=== PATIENT | male | born 1985 | race Caucasian/White ===

== ENCOUNTER 2016-09-04 19:43 | Emergency (ER) | payer MEDICARE, MEDICAID ==
[~2016-09-04] VITALS: Ht 188 cm; Wt 140.4 kg
[2016-09-04 19:51] VITALS: BP 120/83; PULSE 80; RESP 16; O2SAT 97
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
--- NOTE | 2016-09-04 21:21 | DRSVH ---
PROCEDURE: CT BRAIN WITHOUT CONTRAST ([id number]) INDICATIONS: trauma TECHNIQUE: Noncontrast 4.5 mm thick angled axial sections acquired from the foramen magnum to the vertex, with c oronal reformats. COMPARISON: None. FINDINGS: Image quality: Excellent. CSF spaces: Basal cisterns are patent. No extra-axial fluid collections. Ventricles are normal in size and shape. Brain: No midline shift. No intracranial masses or hemorrhage. Celis-white matter interface is norm al. Skull and face: Calvarium and visualized facial bones are intact, without suspicious lesions. Sinuses: Visualized sinuses and mastoids are clear. IMPRESSION: Negative head CT. Dictated by: Eric Michael M.D. on 09/04/2016 at 21:10 Approved by: Eric Michael M.D. on 09/04/2016 at 21:14
--- NOTE | 2016-09-04 21:24 | DRSVH ---
PROCEDURE: CT CERVICAL SPINE WITHOUT CONTRAST ([id number]) INDICATIONS: trauma TECHNIQUE: Noncontrast 3 mm thick sections acquired from the skull base to the T4 level. Sagittal and coronal r eformats were then constructed. For radiation dose reduction, the following was used: automated exp osure control, adjustment of mA and/or kV according to patient size. COMPARISON: None. FINDINGS: Image quality: Excellent. Bones: Loss of the normal cervical lordosis likely due to patient positioning or muscular spasm. Othe rwise normal cervical vertebral body alignment. Motion and artifact related to the patient's body hab itus degrades evaluation of the inferior cervical spine. There are no acute fractures or dislocations . No significant degenerative change. Incidentally visualized paraspinal soft tissues are within norm al limits.. Soft tissues: Prevertebral soft tissues are normal in thickness. No paravertebral hematomas. No ap ical pneumothoraces. IMPRESSION: Loss of the normal cervical lordosis is likely positional. No CT evidence of acute cervical spine pat hology. Please note, evaluation of the inferior cervical spine is degraded by motion and patient body habitus artifact. Dictated by: Eric Michael M.D. on 09/04/2016 at 21:14 Approved by: Eric Michael M.D. on 09/04/2016 at 21:17
--- NOTE | 2016-09-04 21:27 | DRSVH ---
PROCEDURE: CT FACE WITHOUT CONTRAST ([id number]) INDICATIONS: trauma TECHNIQUE: Noncontrast 1.5 mm thick axial images acquired from the mandible through the frontal sinuses, with co lou and sagittal reformatting. For radiation dose reduction, the following was used: automated ex posure control. COMPARISON: None. FINDINGS: Image quality: Excellent. Bones and teeth: Orbital colbert are intact. Sinus colbert show no fracture or deformity. Nasal bones and septum are intact. Visualized portions of the mandible demonstrate no fractures or subluxation. Age-indeterminate fracture or less likely congenital deformity of the right zygomatic arch (se 7 im 7 4). Left zygomatic arch is normal. Pterygoid plates are intact. Visualized portions of the skull ba se and auditory canals are intact. Sinuses: Paranasal sinuses are aerated, without fluid levels, mucosal thickening, or mucoceles. Mas toid air cells are aerated. Soft tissues: Right facial edema/contusion. No enlarged lymph nodes. No soft tissue lacerations or debris. Vascular: Visualized vascular structures appear normal in the absence of contrast. Bony vascular fo ramina and canals are intact. IMPRESSION: Right facial soft tissue swelling/edema with age indeterminate nondisplaced right zygomat ic arch fracture. Otherwise normal CT of the face. Dictated by: Eric Michael M.D. on 09/04/2016 at 21:17 Approved by: Eric Michael M.D. on 09/04/2016 at 21:20
[2016-09-04 21:52] VITALS: BP 122/80; PULSE 82; RESP 16; O2SAT 98
== END 2016-09-04 21:53 | disposition home or self-care (01) ==
LOC: SED 19:43
DX: S00.83XA Contusion of other part of head, initial encounter (principal); S80.811A Abrasion, right lower leg, initial encounter; W01.10XA Fall on same level from slipping, tripping and stumbling with subsequent striking against unspecified object, initial encounter; Y93.89 Activity, other specified; Y92.009 Unspecified place in unspecified non-institutional (private) residence as the place of occurrence of the external cause; Y99.8 Other external cause status; F84.0 Autistic disorder; Z88.5 Allergy status to narcotic agent

== ENCOUNTER 2016-10-06 17:20 | Emergency (ER) | payer MEDICARE, MEDICAID ==
[~2016-10-06] VITALS: Ht 188 cm; Wt 140.9 kg
[2016-10-06 17:28] VITALS: BP 136/99; PULSE 105; RESP 24; O2SAT 95
--- NOTE | 2016-10-06 18:28 | ED.REPORT ---
HPI-Abd Pain M Under 40 Date of Service Oct 06, 2016 ED Provider: Sai Guardado MD A 31 year old nonverbal autistic male with a history of PICA presents to the ED with visible signs of abdominal pain that began a few days ago. Caregiver reports that the patient has not had a BM in 4 days. She also reports diaphoresis, shaking chills, decreased appetite, decreased urine output and discomfort during gait. He was given prune juice this morning to stimulate a BM with no success. The patient has been reportedly "doubling over" in pain for the past few days. Nursing Notes Stated Complaint: SHOWING SIGNS OF PAIN Chief Complaint: Male Abdominal Pain Nursing Notes Reviewed: Yes Allergies: Coded Allergies: haloperidol (Verified Allergy, Unknown, 09/04/16) General Time Seen by MD: 18:25 Chief Complaint Abdominal pain Hx Obtained From: Farm Contractor Buyer Arrived By: Walk-in Sudden in Onset?: No Symptom Duration: Since onset Progression since Onset: Unchanged Location: : Diffuse Quality: Painful Radiation: : Does not radiate Severity: Current: Moderate Severity: Maximum: Moderate Associated with: Reports: Chills, Constipation, Denies: Fever Pertinent Negative: Pt denies other symptoms Recent Healthcare: No recent doctor visit, No recent hospitalization Past Medical History Past Medical History Autism Nonverbal PICA Past Surgical History None reported. Family History Noncontributory Smoking History Never Smoker Social History Other Social History: Good social support, Local resident Ambulatory Status Independent Review of Systems Unable to Obtain ROS Mental status (Pt is nonverbal ) Physical Exam Initial Vital Signs Vital Signs (First) Date Time Temp Pulse Resp B/P Pulse Ox O2 Delivery O2 Flow Rate FiO2 10/06/16 17:28 36.3 105 24 136/99 95 Room Air Initial VS: Reviewed Head / Eyes: Atraumatic, Normocephalic, PERRL Neck: Supple, Non-tender, Full range of motion Extremities: Vascular intact, Neuro intact, No swelling, No tenderness Skin: Warm, Dry, No cyanosis General/Constitutional: Awake, Alert, No acute distress, Well appearing, Well developed Respiratory / Chest: Atraumatic, Breath sounds NL, Breath sounds = bilat, No respiratory distress RESPIRATORY: Tachypneic with respiratory rate 23 Cardiovascular: Regular rhythm, Heart sounds NL Heart Rate / Rhythm: Positive: Tachycardia (100) Abdomen: Atraumatic, Soft, Non-tender Bowel Sounds / Distention: Positive: Bowel sounds hyperactive Back: Atraumatic Abnormal Mood/Affect: Positive: Flat affect PSYCH: Non-verbal Interpretation & Diagnostics Lab Results Interpretation Result Diagram: 10/06/16190810/06/16 190 Test 10/06/16 18:38 10/06/16 19:09 White Blood Count 7.7th/mm3 (3.8-10.1) Red Blood Count 5.21mil/mm3 (4.40-5.80) Hemoglobin 15.4g/dL (13.8-17.2) Hematocrit 43.4% (41.0-50.0) Mean Corpuscular Volume 83.3fL (81-100) Mean Corpuscular Hemoglobin 29.6pg (27.0-35.0) Mean Corpuscular Hemoglobin Concent 35.5% (32.0-37.0) Red Cell Distribution Width 13.8% (12.3-15.4) Platelet Count 140bil/L (150-400) Neutrophils (%) (Auto) 70.3% (40-74) Lymphocytes (%) (Auto) 19.1% (14-46) Monocytes (%) (Auto) 9.6% (4-12) Eosinophils (%) (Auto) 0.8% (0-5) Basophils (%) (Auto) 0.1% (0-3) Sodium Level 140mEq/L (134-144) Potassium Level 4.2mEq/L (3.5-5.2) Chloride Level 103mEq/L (97-108) Carbon Dioxide Level 22mmol/L (18-29) Blood Urea Nitrogen 10mg/dL (6-20) Creatinine 0.76mg/dL (0.76-1.27) Estimat Glomerular Filtration Rate 127mL/min (>59) Glucose Level 102mg/dL (60-99) Calcium Level 9.4mg/dL (8.5-10.1) Total Bilirubin 0.4mg/dL (0.0-1.2) Aspartate Amino Transf (AST/SGOT) 27U/L (0-50) Alanine Aminotransferase (ALT/SGPT) 58U/L (0-44) Alkaline Phosphatase 72U/L (25-150) Total Protein 7.1g/dL (6.4-8.4) Albumin 4.5g/dL (3.4-5.0) Re-Eval/Medical Decision Re-Evaluation/Progress : Time of Eval: 20:42 Patient Status: Condition improved Re-Evaluation/Progress Note: Pt is informed of his results and the plan to discharge with follow up. All of the family's questions are addressed. She understands and agrees with the plan. Counseled Regarding: Diagnosis, Lab results, Need for follow-up, When/why to return to ED Patient Discharge & Departure Primary Impression: Constipation Constipation type: unspecified constipation type Qualified Code: K59.00 - Constipation, unspecified Disposition: Home Discharge Condition All VS Reviewed: Yes Condition: Improved Patient Instructions: Constipation (ED) Additional Instructions: Thank you for trusting us with Ashish's care this evening. His emergency department evaluation is reassuring that there is no dangerous cause for concern at this time and his abdominal pain is likely due to constipation. I recommend that you schedule a follow-up appointment with his primary care physician the next 1-2 days for a recheck. Please take magnesium citrate tonight as directed. If the magnesium citrate is ineffective, prescriptionTheseCPAP for Suprep tomorrow. Please return to the emergency department for any new or worsening conditions including any worsening abdominal pain, high fevers, chills, nausea or uncontrollable vomiting. Referrals: Francia Luis (PCP) Pepe[place] Attestation Portions of this note were transcribed by Augustin Diallo. I, Dr. Guardado personally performed the history, physical exam and medical decision-making; I reviewed and confirmed the accuracy of the information in the transcribed note. Signed by: Kaycee Contreras, 10/06/162046. copies to: Francia Luis Kirk H MD Oct 06, 2016 18:28 AUGUSTIN DIALLO Oct 06, 2016 18:36
[2016-10-06 19:14] LABS: BASOPHILS % (AUTO) 0.1 % (0-3); EOSINOPHILS % (AUTO) 0.8 % (0-5); MONOCYTES % (AUTO) 9.6 % (4-12); Mean Corpuscular Hemoglobin 29.6 pg (27.0-35.0); Mean Corpuscular Volume 83.3 fL (81-100); NEUTROPHILS % (AUTO) 70.3 % (40-74); Platelet Count 140 bil/L (150-400)
[2016-10-06] MEDS ORDERED: SODI354S PO (21:04)
[2016-10-06 21:33] VITALS: BP 142/92; PULSE 77; O2SAT 97
== END 2016-10-06 21:47 | disposition home or self-care (01) ==
LOC: SED 17:20
DX: K59.00 Constipation, unspecified (principal); F84.0 Autistic disorder; F50.89 Other specified eating disorder; Z88.8 Allergy status to other drugs, medicaments and biological substances

== ENCOUNTER 2016-10-07 16:42 | Emergency (ER) | payer MEDICARE, MEDICAID ==
[~2016-10-07] VITALS: Ht 188 cm; Wt 140.9 kg
[~2016-10-07 16:42] MED LIST: SODI354S PO
[2016-10-07 16:47] VITALS: BP 121/83; PULSE 91; RESP 16; O2SAT 97
--- NOTE | 2016-10-07 18:27 | ED.REPORT ---
HPI-Abd Pain M Under 40 Date of Service Oct 07, 2016 ED Provider: Lana Rubalcava History of Present Illness: healthcare administration internship with patient. patient is non verbal. had huge BM just prior to entrance into room. Had trouble walking, resolved. primary care is elizabeth Nursing Notes Stated Complaint: STILL NO BOWEL MOVEMENT Chief Complaint: Male Abdominal Pain Nursing Notes Reviewed: Yes Allergies: Coded Allergies: haloperidol (Verified Allergy, Unknown, 10/07/16) Scheduled Sodium,Potassium,&Mag Sulfates (Suprep Bowel Prep Kit) 354 Ml Soln.recon 354 ML PO ONCE General Time Seen by MD: 18:22 Chief Complaint Other (no BM) Hx Obtained From: Tunnel Inspector Sudden in Onset?: No Past Medical History Past Medical History Autism Nonverbal PICA Past Surgical History None reported. Family History Noncontributory Smoking History Never Smoker Social History Other Social History: Good social support, Local resident Occupation lives in his own home with supportive help. 24 hour help 10/07/2016 Ambulatory Status Independent Review of Systems Basic Review of Systems Eyes: Vision NL, No discharge Skin: No bruising, No rash, No itch Physical Exam Initial Vital Signs Vital Signs (First) Date Time Temp Pulse Resp B/P Pulse Ox O2 Delivery O2 Flow Rate FiO2 10/07/16 16:47 36.8 91 16 121/83 97 Room Air Initial VS: Reviewed, Vital signs normal Head / Eyes: Atraumatic, Normocephalic, PERRL ENT: Mucous membranes moist, Conjunctiva normal, No scleral icterus Neck: Supple, Non-tender, Full range of motion Lymphatic: No lymphadenopathy Extremities: Vascular intact, Neuro intact, No swelling, No tenderness Skin: Warm, Dry, No cyanosis Neurologic: Alert, Oriented, Nonfocal Psychiatric: Mood/affect normal, Behavior normal, Normal thought content General/Constitutional: Awake, Alert, No acute distress, Well appearing, Well developed, Well hydrated Respiratory / Chest: Atraumatic, Breath sounds NL, Breath sounds = bilat, No respiratory distress Cardiovascular: Heart rate NL, Regular rhythm, Heart sounds NL, No gallop Abdomen: Atraumatic, Soft, Non-tender, McBurney's non-tender Re-Eval/Medical Decision Med Decision/Clinical Course 31 year old male presents for no BM. While waiting to be seen, he does have a large BM with resolution of symptoms Patient Discharge & Departure Primary Impression: Constipation Constipation type: unspecified constipation type Qualified Code: K59.00 - Constipation, unspecified Disposition: Home Patient Instructions: Constipation (ED), High Fiber Diet (ED) Additional Instructions: I am so glad he had a large bowel Movement. Consider increasing the fiber in his diet, popcorn is a good option. Also if he is not having a stool in 2 or 3 days, start using magnesium citrate 1/2 bottle . If no stool in 24 hours, you can repeat the magnesium citrate. Please follow with primary care next week for a recheck. Referrals: Frnacia Luis (PCP) EDSupervising Provider for APC: Kevin Kelly MD copies to: Francia Luis Sue ARNP Oct 07, 2016 18:27
== END 2016-10-07 18:56 | disposition home or self-care (01) ==
LOC: SED 16:42
DX: K59.00 Constipation, unspecified (principal); F84.0 Autistic disorder; Z88.8 Allergy status to other drugs, medicaments and biological substances

== ENCOUNTER 2016-11-25 13:30 | Emergency (ER) | payer OTHER, MEDICARE, MEDICAID ==
[~2016-11-25] VITALS: Ht 188 cm; Wt 137.7 kg
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
== END 2016-11-25 16:43 | disposition home or self-care (01) ==
LOC: SED 13:30
DX: T76.21XA Adult sexual abuse, suspected, initial encounter (principal); X58.XXXA Exposure to other specified factors, initial encounter; Y93.89 Activity, other specified; Y99.8 Other external cause status; Y92.89 Other specified places as the place of occurrence of the external cause; F84.9 Pervasive developmental disorder, unspecified; Z88.8 Allergy status to other drugs, medicaments and biological substances

== ENCOUNTER 2016-11-27 19:29 | Emergency (ER) | payer MEDICARE, MEDICAID ==
[~2016-11-27] VITALS: Ht 190.5 cm; Wt 200.0 kg
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
[2016-11-27 23:02] VITALS: BP 120/67; PULSE 82; RESP 24; O2SAT 96
[2016-11-27 23:12] LABS: EOSINOPHILS % (AUTO) 0.1 % (0-5); Mean Corpuscular Hemoglobin 30.5 pg (27.0-35.0)
[2016-11-27] MEDS ORDERED: Ondansetron 8 mg ODT Tablet ONE (23:30)
[2016-11-27 23:32] LABS: BASOPHILS % (AUTO) 0.2 % (0-3); MONOCYTES % (AUTO) 7.5 % (4-12); Mean Corpuscular Volume 81.9 fL (81-100); Platelet Count 161 bil/L (150-400)
[2016-11-28] MEDS ORDERED: _Ondansetron ODT 4 mg Tablet PO PRN (00:20)
[2016-11-28 00:25] VITALS: BP 122/70; PULSE 80; RESP 18; O2SAT 98
[2016-11-28] MEDS ORDERED: Sodium Chloride LOK Flush 10 mL Syringe IVFLUSH SCH (00:30)
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
--- NOTE | 2016-12-04 13:37 | DRSVH ---
CORRECTED SPELLING OF PATIENT LAST NAME ON 12/04/16 PROCEDURE: X-RAY CHEST ONE VIEW ([id number]) INDICATIONS: vomiting, possible aspiration TECHNIQUE: One view of the chest was acquired. COMPARISON: None. FINDINGS: Surgical changes and devices: NG tube projects across the GE junction. Lungs and pleura: No pleural effusions or pneumothorax. Patchy opacity in the left lung base which r epresent atelectasis, aspiration or pneumonia. Mediastinum: Mediastinal contours appear normal. Heart size is normal. Bones and chest wall: No suspicious bony lesions. Overlying soft tissues appear unremarkable. IMPRESSION: Left basilar patchy opacity which could represent atelectasis, early pneumonia or aspira tion. Dictated by: Debi Wharton MD, PhD on 11/27/2016 at 21:28 Approved by: Debi Wharton MD, PhD on 11/27/2016 at 21:29
== END 2016-11-28 01:04 | disposition home or self-care (01) ==
LOC: EDUNIT# 19:29 → SED 19:29 → EDBD 19:29 → SED 11-28 01:04
DX: F91.8 Other conduct disorders (principal); S00.83XA Contusion of other part of head, initial encounter; W22.8XXA Striking against or struck by other objects, initial encounter; Y93.89 Activity, other specified; Y92.198 Other place in other specified residential institution as the place of occurrence of the external cause; Y99.8 Other external cause status; Z87.81 Personal history of (healed) traumatic fracture; Z88.8 Allergy status to other drugs, medicaments and biological substances

== ENCOUNTER 2017-01-07 19:17 | Emergency (ER) | payer MEDICARE, MEDICAID ==
[~2017-01-07] VITALS: Ht 190.5 cm; Wt 150.9 kg
[2017-01-07 19:23] VITALS: BP 114/81; PULSE 108; RESP 16; O2SAT 96
--- NOTE | 2017-01-07 19:31 | ED.REPORT ---
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 Per his inspector materials and processes, in addition to the fever, the patient has been experiencing swelling of his hands, feet, and legs, non-productive cough, diarrhea 4 days ago, and headache for 1 week. He denies ear pain. Nursing Notes Stated Complaint: SENT FROM /[facility] Chief Complaint: General Complaint Nursing Notes Reviewed: Yes Allergies: Coded Allergies: haloperidol (Verified Allergy, Unknown, 10/07/16) Scheduled Alprazolam ER (Alprazolam ER) 2 Mg Tab.er.24h 2 MG PO BID Cholecalciferol (Vitamin D3) (Vitamin D3) 1,000 Unit Tab.chew 1,000 UNIT PO DAILY Clonidine (Clonidine) 0.2 Mg Tablet 0.2 MG PO BID Clonidine (Clonidine) 0.1 Mg Tablet 0.1 MG PO daily @[address] (Depakote DR) 250 Mg Tablet 750 MG PO BID Swallowed whole without chewing to avoid local irritation of the mouth and throat. Fluticasone Propionate (Flonase Allergy Relief) 50 Mcg/Actuation [place].susp 2 SPRAYS NS DAILY Ketoconazole (Nizoral A-D) 200 Ml Shampoo 1 APPL TOP twice weekly Sun/Desirae Levofloxacin (Levaquin) 750 Mg Tablet 750 MG PO DAILY Loratadine (Loratadine) 10 Mg Capsule 10 MG PO DAILY Multivitamin,Therapeutic (Thera) 1 Each Tablet 1 EACH PO DAILY Olanzapine (Olanzapine) 5 Mg Tablet 5 MG PO DAILY Sodium,Potassium,&Mag Sulfates (Suprep Bowel Prep Kit) 354 Ml Soln.recon 354 ML PO ONCE Scheduled PRN Acetaminophen (Acetaminophen) 325 Mg Tablet 650 MG PO every 6 hours PRN PRN pain or fever Zolpidem (Zolpidem) 5 Mg Tablet 5 MG PO HS PRN PRN inability to sleep for 2 days diphenhydrAMINE HCl (Benadryl) 25 Mg Capsule 50 MG PO Q8H PRN PRN agitation General Time Seen by MD: 19:29 Chief Complaint Fever Hx Obtained From: Final Installer Inspector Arrived By: Walk-in Sudden in Onset?: No Onset Occurred: 1 - 4 hours ago Recent Healthcare: No recent hospitalization, Recent doctor visit Similar Sx Previous: No Past Medical History Past Medical History 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 Family History Noncontributory Smoking History Never Smoker Social History lives in an adult home Other Social History: Good social support, Local resident Occupation lives in his own home with supportive help. 24 hour help 10/07/2016 Ambulatory Status Independent Review of Systems Full Review of Systems Constitutional: Reports: Fever Ears / Nose / Throat: Denies: Earache bilateral Respiratory: Reports: Non-productive cough, Denies: Shortness of breath GI: Reports: Diarrhea (4 days ago), Denies: Nausea, Vomiting Musculoskeletal: Reports: Extremity swelling (hands, feet, legs) Neurologic: Reports: Headache Complete sys rev & neg: except as marked. Physical Exam Vital Signs Vital Signs Date Time Temp Pulse Resp B/P Pulse Ox O2 Delivery O2 Flow Rate FiO2 01/07/17 22:39 36.9 108 18 124/86 96 Room Air 01/07/17 22:09 108 18 124/86 96 Room Air 01/07/17 19:23 36.9 108 16 114/81 96 Room Air Initial VS: Reviewed Lymphatic: No lymphadenopathy Skin: Warm, Dry Neurologic: Alert, Oriented Psychiatric: Mood/affect normal Head / Eyes: Atraumatic, Normocephalic no obvious tenderness to percussion on face no facial swelling jaw nontender ENT: Atraumatic, Airway patent right ear obscurred by cerumen Left ear injected and opacified Neck: Atraumatic, No adenopathy Respiratory / Chest: Atraumatic, Breath sounds NL, Breath sounds = bilat, No respiratory distress Cardiovascular: Heart rate NL, Regular rhythm, Heart sounds NL, No gallop, No murmurs, No rubs Abdomen: Atraumatic, Soft, Non-tender BS nl Lower Extremity / Pelvis / MS: Atraumatic, No erythema moderate non-pitting edema Right big toe nail missing Interpretation & Diagnostics Lab Results Interpretation Result Diagram: 01/07/17211101/07/172111 Test 01/07/17 20:23 01/07/17 21:12 Hold Urine Received (Received) White Blood Count 4.6th/mm3 (3.8-10.1) Red Blood Count 5.21mil/mm3 (4.40-5.80) Hemoglobin 15.7g/dL (13.8-17.2) Hematocrit 43.3% (41.0-50.0) Mean Corpuscular Volume 83.1fL (81-100) Mean Corpuscular Hemoglobin 30.1pg (27.0-35.0) Mean Corpuscular Hemoglobin Concent 36.3% (32.0-37.0) Red Cell Distribution Width 14.3% (12.3-15.4) Platelet Count 131bil/L (150-400) Neutrophils (%) (Auto) 76.7% (40-74) Lymphocytes (%) (Auto) 16.8% (14-46) Monocytes (%) (Auto) 5.7% (4-12) Eosinophils (%) (Auto) 0.2% (0-5) Basophils (%) (Auto) 0.2% (0-3) Sodium Level 135mEq/L (134-144) Potassium Level 3.9mEq/L (3.5-5.2) Chloride Level 97mEq/L (97-108) Carbon Dioxide Level 22mmol/L (18-29) Blood Urea Nitrogen 12mg/dL (6-20) Creatinine 0.75mg/dL (0.76-1.27) Estimat Glomerular Filtration Rate 129mL/min (>59) Glucose Level 107mg/dL (60-99) Calcium Level 8.9mg/dL (8.5-10.1) Total Bilirubin 0.6mg/dL (0.0-1.2) Aspartate Amino Transf (AST/SGOT) 28U/L (0-50) Alanine Aminotransferase (ALT/SGPT) 49U/L (0-44) Alkaline Phosphatase 70U/L (25-150) Total Protein 7.1g/dL (6.4-8.4) Albumin 4.2g/dL (3.4-5.0) Hold Bermudez Top Tube Received (Received) Valproic Acid (Depakene) Level 40ug/mL (50-125) Lab Results Interpretation: Urine SP [place]: 1.005 X-Ray Chest Interpretation Chest Xray Interpretation: IMPRESSION: Left basilar atelectasis or early infiltrate. Dictated by: Eric Michael M.D. on 01/07/2017 at 20:26 Approved by: Eric Michael M.D. on 01/07/2017 at 20:27 Interpretation / Wet Read by: Interpret - Radiologist Re-Eval/Medical Decision Med Decision/Clinical Course looks well, has persistent mild tachycardia. evaluation otherwise reassuring. Levaquin started for CAP, should also cover OM. Time of Eval: 19:50 Re-Evaluation/Progress Note: Patient rechecked. Physical exam performed. Plan to put in orders discussed. Time of Eval: 21:54 Re-Evaluation/Progress Note: Patient rechecked. Discussed dx of pneumonia and plan to start on Augmentin and discharge. All questions addressed at this time. Counseled Regarding: Diagnosis, Lab results, Need for follow-up, When/why to return to ED Discharge & Departure Primary Impression: Pneumonia Pneumonia type: due to unspecified organism Laterality: left Lung location : lower lobe of lung Qualified Code: J18.1 - Lobar pneumonia, unspecified organism Additional Impression: Left otitis media Otitis media type: suppurative Chronicity: acute Recurrence: not specified as recurrent Spontaneous tympanic membrane rupture: without spontaneous rupture Qualified Code: H66.002 - Acute suppurative otitis media without spontaneous rupture of ear drum, left ear Disposition: Home Discharge Condition All VS Reviewed: Yes Patient Instructions: Bacterial Pneumonia (ED) Additional Instructions: Emergency department evaluation tonight includes a view, examination, labs and chest x-ray. On examination there appears to be a left ear infection, (otitis media). Chest x-ray is also suggestive of a pneumonia. We have started Levaquin 750 mg daily for 5 days total. This would be expected to cover both the pneumonia and ear infection. The first dose is given tonight, next dose should be tomorrow at bedtime. Continue other previous home medications. Use acetaminophen 500 mg every 4-6 hours as needed for fevers, do not exceed 3000 mg in 24 hours. Follow-up with primary care in approximately 1 week, sooner if not improving. Return emergency Department for vomiting, increased difficulty breathing, abdominal pain or other concerning symptoms. Referrals: Francia Luis (PCP) Scribe Attestation Portions of this note were transcribed by Rowan Ordonez and Abhay Obrien. I, Dr. Vargas personally performed the history, physical exam and medical decision- making; I reviewed and confirmed the accuracy of the information in the transcribed note. Signed by: Kaycee Fajardo, 01/07/2017 copies to: Francia Luis Donald L MD Jan 07, 2017 19:31 Jan 07, 2017 19:44 ROWAN ORDONEZ Jan 07, 2017 22:20
[2017-01-07] MEDS ORDERED: diphenhydrAMINE 50 mg Capsule PO ONE (20:05)
[2017-01-07] MEDS ORDERED: DIPH25CA6 PO (20:12)
[2017-01-07] MEDS ORDERED: CHOL10008 PO (20:12)
[2017-01-07] MEDS ORDERED: CLON0.2T PO (20:12)
[2017-01-07] MEDS ORDERED: ALPR2TAB4 PO (20:12)
[2017-01-07] MEDS ORDERED: OLAN5TAB PO (20:12)
[2017-01-07] MEDS ORDERED: ACET325T51 PO (20:12)
[2017-01-07] MEDS ORDERED: CLON0.1T PO (20:12)
[2017-01-07] MEDS ORDERED: MULT-676 PO (20:12)
[2017-01-07] MEDS ORDERED: KETO200S2 TOP (20:12)
[2017-01-07] MEDS ORDERED: LORA10CA9 PO (20:12)
[2017-01-07] MEDS ORDERED: ZOLP5TAB6 PO (20:12)
[2017-01-07] MEDS ORDERED: DEP250A PO (20:12)
[2017-01-07] MEDS ORDERED: FLUT9.9S NS (20:12)
[2017-01-07] MEDS ORDERED: diphenhydrAMINE 25 mg Capsule PO ONE (20:25)
--- NOTE | 2017-01-07 20:28 | DRSVH ---
PROCEDURE: X-RAY CHEST, TWO VIEWS ([id number]) INDICATIONS: fever, cough TECHNIQUE: 2 views of the chest were acquired. COMPARISON: None. FINDINGS: Surgical changes and devices: None. Lungs and pleura: No pleural effusions or pneumothorax. Shallow inspiration causing left basilar ate lectasis or an early infiltrate. Mediastinum: Mediastinal contours are normal. Heart size is normal. Bones and chest wall: No suspicious bony abnormalities. Soft tissues appear unremarkable. IMPRESSION: Left basilar atelectasis or early infiltrate. Dictated by: Eric Michael M.D. on 01/07/2017 at 20:26 Approved by: Eric Michael M.D. on 01/07/2017 at 20:27
[2017-01-07 21:15] LABS: BASOPHILS % (AUTO) 0.2 % (0-3); EOSINOPHILS % (AUTO) 0.2 % (0-5); MONOCYTES % (AUTO) 5.7 % (4-12); Mean Corpuscular Hemoglobin 30.1 pg (27.0-35.0); Mean Corpuscular Volume 83.1 fL (81-100); NEUTROPHILS % (AUTO) 76.7 % (40-74); Platelet Count 131 bil/L (150-400)
[2017-01-07] MEDS ORDERED: levoFLOXacin 750 mg Tablet PO ONE (22:00)
[2017-01-07] MEDS ORDERED: LEVO750T9 PO (22:04)
[2017-01-07 22:09] VITALS: BP 124/86; PULSE 108; RESP 18; O2SAT 96
[2017-01-07 22:39] VITALS: BP 124/86; PULSE 108; RESP 18; O2SAT 96
== END 2017-01-07 22:39 | disposition home or self-care (01) ==
LOC: SED 19:17
DX: J18.1 Lobar pneumonia, unspecified organism (principal); H66.002 Acute suppurative otitis media without spontaneous rupture of ear drum, left ear; M79.89 Other specified soft tissue disorders; R19.7 Diarrhea, unspecified; R50.9 Fever, unspecified; R51 Headache; Z87.81 Personal history of (healed) traumatic fracture; Z87.828 Personal history of other (healed) physical injury and trauma; Z88.8 Allergy status to other drugs, medicaments and biological substances